=== PATIENT | male | born 1965 | race African-American/Black ===

== ENCOUNTER 2017-04-25 12:39 | Emergency (ER) | payer OTHER ==
[~2017-04-25] VITALS: Ht 170.2 cm; Wt 68.0 kg
[2017-04-25] MEDS ORDERED: ACYCLOVIR 200200 MG PO (14:38)
[2017-04-25 14:47] VITALS: BP 122/70
== END 2017-04-25 14:48 | disposition home or self-care (01) ==
LOC: ER 12:39
DX: H57.11 Ocular pain, right eye (principal); F17.210 Nicotine dependence, cigarettes, uncomplicated

== ENCOUNTER 2017-12-19 04:41 | Inpatient (IN) | payer OTHER ==
[~2017-12-19] VITALS: Ht 170.2 cm; Wt 61.7 kg
[~2017-12-19 04:41] MED LIST: ACYCLOVIR 200200 MG PO
[2017-12-19 05:12] VITALS: BP 87/45
[2017-12-19 05:19] LABS: HEMATOCRIT 42.3 % (42.0-52.0); HEMOGLOBIN 14.4 gm/dL (14.0-18.0); MCH 31.7 pg (26.0-34.0); MCHC 34.1 g/dL (28.0-37.0); MCV 92.9 fL (80.0-100.0); PLATELET COUNT 205 thou/uL (150-400); RBC 4.55 mil/uL (4.50-6.00); RDW 13.1 % (10.5-14.5); WBC 10.7 thou/uL (4.0-11.0)
[2017-12-19 05:33] LABS: CREATININE 1.4 mg/dL (0.7-1.3); POTASSIUM 3.2 mmol/L (3.5-5.1)
[2017-12-19 05:44] LABS: ABSOLUTE NEUTROPHILS 8.6 thou/uL (1.4-8.2)
[2017-12-19 06:09] VITALS: BP 87/45
[2017-12-19 06:53] VITALS: BP 115/68
[2017-12-19 16:51] VITALS: BP 120/76
[2017-12-19 19:55] VITALS: BP 109/69
[2017-12-20 04:08] VITALS: BP 121/88
[2017-12-20 08:14] VITALS: BP 115/75
[2017-12-20] MEDS ORDERED: CEFUROXIME500 MG PO (09:40)
[2017-12-20] MEDS ORDERED: DEEP SEA NASAL44 M1 NASAL (09:40)
[2017-12-20] MEDS ORDERED: MUCINEX600 MG PO (09:40)
[2017-12-20 13:13] VITALS: BP 115/75
== END 2017-12-20 18:44 | disposition home or self-care (01) | DRG 193 ==
LOC: ER 04:41 → EROBS 05:45 → 4N 05:45 → ER 06:10 → 4N 06:10
PROVIDERS: Emergency Medicine
DX: J18.9 Pneumonia, unspecified organism (principal); J96.91 Respiratory failure, unspecified with hypoxia; F17.210 Nicotine dependence, cigarettes, uncomplicated; E86.0 Dehydration; Z28.21 Immunization not carried out because of patient refusal; Z79.899 Other long term (current) drug therapy
CPT/HCPCS: 10091

== ENCOUNTER 2017-12-27 11:47 | Emergency (ER) | payer OTHER ==
[~2017-12-27] VITALS: Ht 170.2 cm; Wt 63.5 kg
[~2017-12-27 11:47] MED LIST changes: +CEFUROXIME500 MG PO; +DEEP SEA NASAL44 M1 NASAL; +MUCINEX600 MG PO
[2017-12-27 11:48] VITALS: BP 118/79
== END 2017-12-27 12:23 | disposition home or self-care (01) ==
LOC: ER 11:47
DX: Z71.6 Tobacco abuse counseling (principal); F17.210 Nicotine dependence, cigarettes, uncomplicated

== ENCOUNTER 2021-06-16 13:24 | Emergency (ER) | payer BC, OTHER ==
[~2021-06-16] VITALS: Ht 170.2 cm; Wt 68.0 kg
[2021-06-16] MEDS ORDERED: PREDNISONE50 MG PO (14:54)
[2021-06-16 15:01] VITALS: BP 119/83
== END 2021-06-16 15:04 | disposition home or self-care (01) ==
LOC: ER 13:24
DX: M25.562 Pain in left knee (principal); M25.561 Pain in right knee; F17.210 Nicotine dependence, cigarettes, uncomplicated; Z79.899 Other long term (current) drug therapy